=== PATIENT | female | born 1940 | race Caucasian/White ===

== ENCOUNTER 2021-06-19 12:25 | Outpatient (CLI) | payer MEDICARE, BC | END 2021-06-19 12:26 | disposition home or self-care (01) | LOC: CSHMAMMO 12:25 | PROVIDERS: ATTEND Internal Medicine | DX: Z12.31 Encounter for screening mammogram for malignant neoplasm of breast (principal) | CPT/HCPCS: 77063; 77067 ==

== ENCOUNTER 2023-03-31 10:49 | Outpatient (CLI) | payer MEDICARE, BC | END 2023-03-31 10:50 | disposition home or self-care (01) | LOC: CSHMAMMO 10:49 | PROVIDERS: ATTEND Internal Medicine | DX: Z12.31 Encounter for screening mammogram for malignant neoplasm of breast (principal); Z91.89 Other specified personal risk factors, not elsewhere classified | CPT/HCPCS: 77063; 77067 ==

== ENCOUNTER 2025-05-07 11:08 | Outpatient (CLI) | payer MEDICARE | END 2025-05-07 11:09 | disposition home or self-care (01) | LOC: CSHMAMMO 11:08 | PROVIDERS: ATTEND Internal Medicine | DX: Z12.31 Encounter for screening mammogram for malignant neoplasm of breast (principal) | CPT/HCPCS: 77063; 77067 ==